=== PATIENT | female | born 1950 | race Caucasian/White ===

== ENCOUNTER 2020-01-25 00:28 | Outpatient (CLI) | payer OTHER, SELFPAY ==
[2020-01-25 20:58] LABS: SARS-CoV-2 RNA PCR Negative
== END 2020-01-25 00:29 | disposition home or self-care (01) ==
LOC: ANHCOVIDDT 00:28
PROVIDERS: Visit Provider Internal Medicine Gastroenterology
DX: Z01.812 Encounter for preprocedural laboratory examination (principal); Z11.59 Encounter for screening for other viral diseases
CPT/HCPCS: 87635; C9803; U0003

== ENCOUNTER 2020-01-28 01:22 | Day surgery (SDC) | payer OTHER, SELFPAY ==
[2020-01-23 11:53] VITALS: BMI 29.8
[2020-01-28] MEDS: LACTATED RINGERS 1,000 ML 100 ML IV CONT (07:09)
[2020-01-28] MEDS: GENTAMICIN 60 MG/50 ML NS 60 MG/50 ML BAG 100 MG IVPB (07:10)
--- NOTE | 2020-01-28 07:17 | PM.HPGS ---
History of Present Illness History of Present Illness Consent: Risks, benefits, and alternatives have been discussed and questions answered. Patient agrees to proceed with procedure. Chief complaint: Black Tarry Stool Narrative: Chelly Patetrson is a 69 year old W female referred for colonoscopy for evaluation several day history of dark stools which have subsequently resolved. Patient did not have a blood count drawn. She denies any previous history of bleeding. She had been on Plavix but this was stopped 4 days ago. Patient is on the Plavix secondary to a aortic valve replacement which was placed in May of last year. She also had a coronary stent placed at that time. This was performed in [facility] and she states that she is not can be placed back on the Plavix. Patient has a history of chronic gastroesophageal reflux disease for which she takes Prilosec 40 mg daily. She has no upper GI symptoms at this time. She denies any nonsteroidal inflammatory drugs. Patient states had a colonoscopy 6-7 years ago which was normal. She has had several prior to that time because of a family history of colon polyps in father. There is no family history of inflammatory bowel disease. Patient also has a history of chronic diarrhea of least several year duration. [facility] Past Medical History Medical History (Updated 01/28/20 @ 07:20 by Te Chowdhury MD) COPD (chronic obstructive pulmonary disease) GERD (gastroesophageal reflux disease) Hypertension Surgical History Surgical History (Updated 01/28/20 @ 07:21 by Te Chowdhury MD) Aortic valve replaced Status post emergency section Status post hysterectomy Meds Home Medications and Allergies Home Medications Medication Instructions Recorded Confirmed Type aspirin 81 mg PO DAILY 01/23/20 01/23/20 History clopidogrel 75 mg PO DAILY 01/23/20 01/23/20 History furosemide 20 mg PO EVERY OTHER DAY 01/23/20 01/23/20 History metoprolol tartrate 50 mg PO Q12H 01/23/20 01/23/20 History potassium chloride 20 meq PO EVERY OTHER DAY 01/23/20 01/23/20 History Allergies Allergy/AdvReac Type Severity Reaction Status Date / Time No Known Drug Allergies Allergy Unknown Verified 01/23/20 12:22 Exam Const: Orientation/consciousness: patient oriented x3 Resp: Auscultation: clear to auscultation bilaterally Cardio: Rate: regular rate Rhythm: regular rhythm Heart sounds: no murmurs GI: GI Palp: Yes Soft to palpation, No Tenderness to palpation present (GI), Yes No hepatosplenomegaly present and No Palpable mass present Auscultation: normal bowel sounds Neuro: General: patient oriented x3 and no focal motor deficits Extrem: General: no pedal edema Assessment and Plan Additional Plan colonoscopy secondary to dark stool/ GI bleed in a family history of polyps in her father
[2020-01-28 07:25] VITALS: BP 150/96; PULSE 71; RESP 18; TEMP 36.1; O2SAT 94; BMI 29.8
[2020-01-28] MEDS: AMPICILLIN 2 GM/NS 100 ML 2 GM/100 ML BAG IVPB (07:34)
--- NOTE | 2020-01-28 07:48 | WPDANESEPPF ---
Anes - Initial Pre Proc Eval Procedure: Operation Date: 01/28/20 08:00 Proposed Procedures p Colonoscopy - Te Chowdhury MD Date/Time: 01/28/20 07:48 Surgeon: Te Chowdhury MD Pre Op Diagnosis: Black Tarry Stool Patient Data Age: 69 Gender: F Height: 1.5 m Weight: 67 kg Last Vital Signs Temp 36.1 C L 01/28/20 07:25 Pulse 71 01/28/20 07:25 Resp 18 01/28/20 07:25 BP 150/96 H 01/28/20 07:25 Pulse Ox 94 01/28/20 07:25 Allergies Allergy/AdvReac Type Severity Reaction Status Date / Time No Known Drug Allergies Allergy Unknown Verified 01/23/20 12:22 Home Medications Medication Instructions Recorded Confirmed Type aspirin 81 mg PO DAILY 01/23/20 01/28/20 History clopidogrel 75 mg PO DAILY 01/23/20 01/28/20 History furosemide 20 mg PO EVERY OTHER DAY 01/23/20 01/28/20 History metoprolol tartrate 50 mg PO Q12H 01/23/20 01/28/20 History potassium chloride 20 meq PO EVERY OTHER DAY 01/23/20 01/28/20 History Patient hx anesthesia problems: none Family hx anesthesia problems: none PMFSH Past Medical History Medical History (Updated 01/28/20 @ 07:52 by Luis Heart MD) CAD (coronary artery disease) STENT AND PIG VALVE PLACED MAY 2019 COPD (chronic obstructive pulmonary disease) GERD (gastroesophageal reflux disease) Hypertension Surgical History Surgical History (Updated 01/28/20 @ 07:21 by Te Chowdhury MD) Aortic valve replaced Status post emergency section Status post hysterectomy Anes - Eval Final PreProcedure Day of Procedure 01/28/20 07:48 Patient weight: overweight Heart: regular rate and rhythm Lungs: clear to auscultation and normal air movement Airway: Mallampati scale class II Neurological: alert and oriented Last oral intake: >/= 8 hours ASA classification: III Emergent: no Anesthetic plan: proceed Anesthesia type and monitoring: general GIVS Informed Consent: The patient's anesthetic plan and its attendant risks and benefits were discussed with the patient/family/POA. Questions were solicited and answers provided to the satisfaction of the patient/family/POA.
[2020-01-28 08:49] VITALS: BP 143/68; PULSE 67; RESP 18; O2SAT 98
[2020-01-28 08:59] VITALS: BP 165/81; PULSE 62; RESP 18; O2SAT 98
[2020-01-28 09:09] VITALS: BP 166/85; PULSE 64; RESP 18; O2SAT 97
== END 2020-01-28 09:17 | disposition home or self-care (01) ==
PROVIDERS: Visit Provider Internal Medicine Gastroenterology
PROC: 0DJD8ZZ Inspection of Lower Intestinal Tract, Via Natural or Artificial Opening Endoscopic (ICD-10-PCS; CPT 45378; principal; 2020-01-28 08:00)
DX: K92.1 Melena (principal); D12.8 Benign neoplasm of rectum; D12.0 Benign neoplasm of cecum; D12.3 Benign neoplasm of transverse colon; D12.1 Benign neoplasm of appendix; K64.4 Residual hemorrhoidal skin tags; K64.8 Other hemorrhoids; Z83.71 Family history of colonic polyps; I10 Essential (primary) hypertension; I25.10 Atherosclerotic heart disease of native coronary artery without angina pectoris; J44.9 Chronic obstructive pulmonary disease, unspecified; K21.9 Gastro-esophageal reflux disease without esophagitis; Z79.02 Long term (current) use of antithrombotics/antiplatelets; Z79.82 Long term (current) use of aspirin
CPT/HCPCS: 45385; 45380; 88305; J0290; J1580; J2001; J2704; J7120